=== PATIENT | female | born 1980 | race Native Hawaiian/Other Pacific Islander ===

== ENCOUNTER 2020-08-15 01:31 | Inpatient (IN) | payer BC ==
[2020-08-15] MEDS ORDERED: Bicitra 30 ML UDCUP PO PRN (02:01)
[2020-08-15] MEDS ORDERED: hydrALAZINE 20 MG/ML VIAL SLOW IVP PRN ×2 (02:01→08:42)
[2020-08-15] MEDS ORDERED: Promethazine HCl 25 MG/ML VIAL IM PRN ×2 (02:01→10:50)
[2020-08-15] MEDS ORDERED: Ondansetron PF 4 MG/2 ML Vial IVP PRN ×3 (02:01→10:50)
[2020-08-15] MEDS ORDERED: Famotidine/PF 20 mg/2ml Vial SLOW IVP PRN (02:01)
[2020-08-15] MEDS ORDERED: Calcium Gluc 4.6 MEQ/10 ML (100 MG/ML) SLOW IVP PRN (02:03)
[2020-08-15 02:04] VITALS: BMI 35.7
[2020-08-15] MEDS ORDERED: Magnesium Sulfate 20 GM/WATER 500 ML BAG IVPB SCH (02:15)
[2020-08-15] MEDS ORDERED: CEFAZOLIN 2 GM in Premix Bag 1 BAG IVPB SCH (02:15)
[2020-08-15] MEDS ORDERED: Magnesium Sulfate 20 gm/500 ml 20 GM/500 ML BAG IVPB SCH (02:15)
[2020-08-15] MEDS: hydrALAZINE 20 MG/ML VIAL SLOW IVP PRN ×3 (02:36→06:46)
[2020-08-15 02:43] LABS: Hemoglobin 9.6 g/dL (12.0-15.5); Mean Corpuscular HGB CONC 31.3 g/dL (32.0-36.0); Mean Corpuscular Volume 76.8 fl (81.6-98.3); Mean Platelet Volume 11.8 fl (7.4-10.4); Platelet Count 221 10x3/uL (150-450); RBC Distribution Width 14.9 % (11.5-14.5); White Blood Cell (WBC) Count 10.8 10x3/uL (3.5-10.5)
[2020-08-15 02:57] LABS: ALT (SGPT) 8 U/L (8-55); AST (SGOT) 14 U/L (5-34); Albumin 3.1 g/dL (3.5-5.0); Alkaline Phosphatase 145 U/L (40-110); Anion Gap 14 mmol/L (10-20); BUN (Urea Nitrogen) 10 mg/dL (7.0-18.7); Bilirubin, Total 0.4 mg/dL (0.2-1.2); Calc. Creatinine Clearance 191 mL/min (70-130); Calcium 8.4 mg/dL (7.8-10.44); Carbon Dioxide 20 mmol/L (22-29); Chloride 106 mmol/L (98-107); Globulin 3.1 g/dL (2.4-3.5); Glucose 82 mg/dL (70-105); Potassium 3.2 mmol/L (3.5-5.1); Protein, Total 6.2 g/dL (6.0-8.3); Sodium 137 mmol/L (136-145)
[2020-08-15 03:17] LABS: Hep B Surf Ag Non-Reactive S/CO (NonReactive); Syphilis Antibody Nonreactive (Nonreactive); Syphilis Antibody Index 0.04 S/CO (<1.00 Non-Reactive)
[2020-08-15 03:19] LABS: HBSAg Index 0.16 S/CO (0-0.99)
[2020-08-15] MEDS ORDERED: Furosemide 20 MG/2 ML VIAL SLOW IVP SCH (05:00)
[2020-08-15] MEDS ORDERED: NS 0.9% w/ 20 MEQ KCL 1,000 ML ONE (05:17)
[2020-08-15] MEDS: NS 0.9% w/ 20 MEQ KCL 1,000 ML/1,000 ML BAG IV SCH (05:38)
[2020-08-15] MEDS ORDERED: Potassium Chloride 20 MEQ in Lactated Ringer's 1,000 ML IV SCH (06:30)
[2020-08-15] MEDS ORDERED: Morphine PF 10 MG/10 ML VIAL ONE (07:20)
[2020-08-15] MEDS ORDERED: Fentanyl 100 MCG/2 ML VIAL ONE (07:22)
[2020-08-15] MEDS ORDERED: PHENYLEPHRINE-NS 100 MCG/ML 10 ML SYRINGE ONE ×3 (07:43→07:55)
[2020-08-15] MEDS ORDERED: Dexamethasone 4 mg/ml Vial ONE (07:48)
[2020-08-15] MEDS ORDERED: Ondansetron PF 4 MG/2 ML Vial ONE (07:48)
[2020-08-15] MEDS ORDERED: Misoprostol 200 MCG TAB ONE (07:51)
[2020-08-15] MEDS ORDERED: Carboprost 250 MCG/ML AMP ONE (07:52)
[2020-08-15] MEDS ORDERED: Ketorolac Tromethamine 30 MG/ML VIAL ONE (07:57)
[2020-08-15] MEDS ORDERED: Oxytocin 10 UNITS/ML VIAL ONE ×2 (08:06→08:58)
[2020-08-15] MEDS ORDERED: Phenylephrine 10 MG/ML VIAL ONE (08:30)
[2020-08-15] MEDS ORDERED: Zolpidem Tartrate 5 MG TAB PO PRN ×2 (08:42→23:00)
[2020-08-15] MEDS ORDERED: diphenhydrAMINE 25 MG CAP PO PRN (08:42)
[2020-08-15] MEDS ORDERED: Acetaminophen 325 MG TAB PO PRN (08:42)
[2020-08-15] MEDS ORDERED: Simethicone Chewable 80 MG TAB PO PRN (08:42)
[2020-08-15] MEDS ORDERED: HYDROcodone/Acetaminophen 5/325 mg Tablet PO PRN ×3 (08:42→23:00)
[2020-08-15] MEDS ORDERED: Bisacodyl 10 MG SUPP PR PRN (08:42)
[2020-08-15] MEDS ORDERED: Adacel (T-DAP) 0.5 ML SYRINGE IM ONE (08:42)
[2020-08-15] MEDS ORDERED: Misoprostol 200 MCG TAB PR PRN (08:42)
[2020-08-15] MEDS ORDERED: Calcium Gluconate 4.6 MEQ in Sodium Chloride 0.9% 100 ML IVPB PRN (08:42)
[2020-08-15] MEDS ORDERED: Meperidine HCl/PF 25 MG/ML VIAL IM PRN ×2 (08:42→23:00)
[2020-08-15] MEDS ORDERED: Lanolin Ointment 7 GM TUBE TOP PRN (08:42)
[2020-08-15] MEDS ORDERED: NS w/ Oxytocin 30 units 500 ML IV SCH (09:15)
[2020-08-15] MEDS ORDERED: Naloxone HCl 0.4 mg/ml Vial IV PRN (10:50)
[2020-08-15] MEDS ORDERED: HYDROmorphone 2 MG/ML VIAL SLOW IVP PRN (10:50)
[2020-08-15] MEDS ORDERED: Meperidine HCl/PF 25 MG/ML VIAL SLOW IVP PRN (10:50)
[2020-08-15] MEDS ORDERED: Naloxone HCl 0.4 mg/ml Vial IVP PRN ×2 (10:50)
[2020-08-15] MEDS ORDERED: L&D-Morphine 4 MG/ML VIAL SLOW IVP PRN (10:50)
[2020-08-15] MEDS ORDERED: diphenhydrAMINE 50 MG/ML VIAL IVP PRN (10:50)
[2020-08-15] MEDS ORDERED: Promethazine HCl 25 MG SUPP PR PRN (10:50)
[2020-08-15] MEDS ORDERED: Ondansetron HCl/PF 4 MG/2 ML Vial IVP PRN (10:50)
[2020-08-15] MEDS ORDERED: Communication Order-Pharmacy FS SCH (11:00)
[2020-08-15] MEDS ORDERED: Labetalol 100 MG TAB PO SCH (11:00)
[2020-08-15] MEDS: Magnesium Sulfate 20 gm/500 ml 20 GM/500 ML BAG IVPB SCH ×2 (11:20→21:41)
[2020-08-15] MEDS ORDERED: Meperidine HCl/PF 25 MG/ML VIAL ONE (11:51)
[2020-08-15] MEDS ORDERED: Labetalol HCl 100 MG/20 ML VIAL SLOW IVP SCH (12:07)
[2020-08-15] MEDS ORDERED: Labetalol HCl 100 MG/20 ML VIAL ONE (12:22)
[2020-08-15] MEDS ORDERED: Triamterene/Hydrochlorothiazide 37.5 mg/25 mg Tablet PO SCH (14:30)
[2020-08-15 17:59] LABS: SARS-CoV-2 PCR by NAA Not Detected (NotDetected)
[2020-08-15] MEDS: Lactated Ringer's 1,000 ML IV SCH (22:08)
[2020-08-16] MEDS ORDERED: Fentanyl 100 MCG/2 ML VIAL SLOW IVP PRN ×2 (00:06→06:35)
[2020-08-16] MEDS: Lactated Ringer's 1,000 ML IV SCH ×5 (03:56→23:25)
[2020-08-16] MEDS: Docusate Calcium (SURFAK) 240 MG CAP PO SCH ×3 (03:57→21:03)
[2020-08-16] MEDS: Prenatal Vitamin 1 TAB PO SCH ×2 (03:58→08:33)
[2020-08-16] MEDS: Ferrous Sulfate 325 MG TAB PO SCH ×3 (03:58→21:03)
[2020-08-16] MEDS: Ibuprofen 800 MG TAB PO SCH ×5 (03:59→21:03)
[2020-08-16] MEDS: Ketorolac Tromethamine 30 MG/ML VIAL IVP SCH ×4 (04:00→10:56)
[2020-08-16] MEDS: NS 0.9% w/ 20 MEQ KCL 1,000 ML/1,000 ML BAG IV SCH ×3 (04:00→20:06)
[2020-08-16] MEDS: Labetalol 100 MG TAB PO SCH ×4 (04:02→21:04)
[2020-08-16] MEDS: hydrALAZINE 20 MG/ML VIAL SLOW IVP PRN ×2 (05:39→06:09)
[2020-08-16 06:38] LABS: Hemoglobin 8.4 g/dL (12.0-15.5); Mean Corpuscular HGB CONC 30.5 g/dL (32.0-36.0); Mean Corpuscular Hemoglobin 23.5 pg (27.0-33.0); Mean Platelet Volume 11.6 fl (7.4-10.4); Platelet Count 243 10x3/uL (150-450); RBC Distribution Width 15.1 % (11.5-14.5); Red Blood Cell (RBC) Count 3.57 10x6/uL (3.90-5.03); White Blood Cell (WBC) Count 13.9 10x3/uL (3.5-10.5)
[2020-08-16 07:30] LABS: ALT (SGPT) 9 U/L (8-55); AST (SGOT) 20 U/L (5-34); Albumin 2.8 g/dL (3.5-5.0); Alkaline Phosphatase 113 U/L (40-110); Anion Gap 13 mmol/L (10-20); BUN (Urea Nitrogen) 9 mg/dL (7.0-18.7); Bilirubin, Total 0.4 mg/dL (0.2-1.2); Calc. Creatinine Clearance 185 mL/min (70-130); Calcium 7.2 mg/dL (7.8-10.44); Carbon Dioxide 23 mmol/L (22-29); Chloride 102 mmol/L (98-107); Globulin 2.9 g/dL (2.4-3.5); Glucose 89 mg/dL (70-105); Potassium 3.7 mmol/L (3.5-5.1); Protein, Total 5.7 g/dL (6.0-8.3); Sodium 134 mmol/L (136-145)
[2020-08-16] MEDS: Triamterene/Hydrochlorothiazide 37.5 mg/25 mg Tablet PO SCH ×2 (09:49→11:27)
[2020-08-16] MEDS ORDERED: hydrALAZINE 20 MG/ML VIAL SLOW IVP PRN (11:12)
[2020-08-16] MEDS ORDERED: Ondansetron PF 4 MG/2 ML Vial IVP PRN (11:14)
[2020-08-16] MEDS ORDERED: Ondansetron ODT 4 MG TAB PO PRN (12:05)
[2020-08-16] MEDS: HYDROcodone/Acetaminophen 5/325 mg Tablet PO PRN (21:04)
[2020-08-17] MEDS: Ibuprofen 800 MG TAB PO SCH ×2 (04:27→13:52)
[2020-08-17] MEDS: HYDROcodone/Acetaminophen 5/325 mg Tablet PO PRN ×2 (04:28→13:50)
[2020-08-17] MEDS: Lactated Ringer's 1,000 ML IV SCH (08:07)
[2020-08-17] MEDS: Docusate Calcium (SURFAK) 240 MG CAP PO SCH (08:24)
[2020-08-17] MEDS: Labetalol 100 MG TAB PO SCH (08:24)
[2020-08-17] MEDS: Prenatal Vitamin 1 TAB PO SCH (08:24)
[2020-08-17] MEDS: Ferrous Sulfate 325 MG TAB PO SCH (08:24)
[2020-08-17] MEDS: Triamterene/Hydrochlorothiazide 37.5 mg/25 mg Tablet PO SCH (08:46)
[2020-08-17] MEDS: NS 0.9% w/ 20 MEQ KCL 1,000 ML/1,000 ML BAG IV SCH (12:12)
[2020-08-17 14:00] VITALS: BP 114/61; TEMP 98.6
== END 2020-08-17 15:20 | disposition home or self-care (01) | DRG 787 ==
LOC: CSHLD/OP 01:31 → CSHLD 02:23 → CSHPP 08-16 09:30
PROVIDERS: ADMIT Obstetrics & Gynecology; ATTEND Obstetrics & Gynecology
PROC: 10D00Z1 Extraction of Products of Conception, Low, Open Approach (ICD-10-PCS; principal; 2020-08-15)
DX: O60.13X0 Preterm labor second trimester with preterm delivery third trimester, not applicable or unspecified (principal); O99.13 Other diseases of the blood and blood-forming organs and certain disorders involving the immune mechanism complicating the puerperium; D62 Acute posthemorrhagic anemia; O14.14 Severe pre-eclampsia complicating childbirth; Z20.822 Contact with and (suspected) exposure to COVID-19; O99.344 Other mental disorders complicating childbirth; F41.9 Anxiety disorder, unspecified; O99.824 Streptococcus B carrier state complicating childbirth; Z3A.36 36 weeks gestation of pregnancy; Z37.0 Single live birth; Z90.49 Acquired absence of other specified parts of digestive tract; O90.81 Anemia of the puerperium
CPT/HCPCS: 36415; 51702; 71045; 80053; 81003; 83735; 85027; 86780; 86850; 86900; 86901; 87340; 87635; 99285; J0360; J0690; J1100; J1885; J1940; J2175; J2270; J2370; J2405; J2550; J3010; J3475; J3480; J7120; U0003; U0005